=== PATIENT | female | born 1950 | race Two or more races ===

== ENCOUNTER 2022-05-29 15:00 | Inpatient (IN) | payer OTHER ==
[~2022-05-29] VITALS: Ht 152.4 cm; Wt 49.4 kg
[2022-05-29] MEDS: IV D5/0.45 NACL 1,000 ML IV SCH (01:20)
--- NOTE | 2022-05-29 15:10 | NUR ---
IV LINE ESTABLISHED ON RAC #18, BLOOD DRAWN AND SENT TO LAB
--- NOTE | 2022-05-29 15:22 | NUR ---
TECH AT BEDSIDE FOR EKG
[2022-05-29] MEDS ORDERED: IV NS 0.9% 1,000 ML BAG IV ONE ×2 (15:30→17:00)
[2022-05-29] MEDS ORDERED: TRIA1TAB3 PO (15:31)
[2022-05-29] MEDS ORDERED: CYCL10TA9 PO (15:31)
[2022-05-29] MEDS ORDERED: ROFL500T PO (15:31)
[2022-05-29] MEDS ORDERED: USTE90DI SQ (15:31)
[2022-05-29] MEDS ORDERED: ALBU18HF2 IH (15:31)
[2022-05-29] MEDS ORDERED: OSPE60TA2 PO (15:31)
[2022-05-29] MEDS ORDERED: FAMO-108 PO (15:31)
[2022-05-29] MEDS ORDERED: BENZ-38 PO (15:31)
[2022-05-29] MEDS ORDERED: SPIR25TA PO (15:31)
[2022-05-29] MEDS ORDERED: VORT10TA PO (15:31)
[2022-05-29] MEDS ORDERED: BREX4TAB PO (15:31)
[2022-05-29] MEDS ORDERED: LEMB10TA PO (15:31)
[2022-05-29] MEDS ORDERED: OXYC1TAB10 PO (15:31)
--- NOTE | 2022-05-29 15:31 | NUR ---
PT TAKEN TO RADIOLOGY VIA [facility]
[2022-05-29] MEDS ORDERED: LISI10TA29 PO (15:33)
[2022-05-29] MEDS ORDERED: FLUT1BLS6 INH (15:33)
[2022-05-29] MEDS ORDERED: ERGO500093 PO (15:33)
[2022-05-29 17:04] LABS: BASOPHILS % (AUTO) 0.3 % (0.0-2.0); EOSINOPHILS % (AUTO) 2.2 % (0.0-6.0); HEMATOCRIT 39 % (33-45); HEMOGLOBIN 12.9 g/dL (11.5-14.8); LYMPHOCYTES # (AUTO) 0.9 K/uL (0.8-4.8); LYMPHOCYTES % (AUTO) 5.9 % (20.0-44.0); MEAN CORPUSCULAR HGB CONC 33 g/dl (31.0-36.0); MEAN CORPUSCULAR VOLUME 95 fL (82-100); MONOCYTES # (AUTO) 0.6 K/uL (0.1-1.30); MONOCYTES % (AUTO) 3.8 % (2.0-12.0); NEUTROPHILS # (AUTO) 13.6 K/uL (1.8-8.9); NEUTROPHILS % (AUTO) 87.8 % (43.0-81.0); RED BLOOD CELL COUNT(AUTO) 4.11 MIL/uL (4.0-5.2); WHITE BLOOD COUNT (AUTO) 15.5 K/uL (4.3-11.0)
[2022-05-29 17:17] LABS: ALANINE AMINOTRANSFERASE 27 U/L (12-78); ALBUMIN 3.5 g/dL (3.4-5.0); ALKALINE PHOSPHATASE 70 U/L (46-116); ASPARTATE AMINOTRANSFERASE 37 U/L (15-37); BILIRUBIN,DIRECT 0.1 mg/dL (0.0-0.2); BILIRUBIN,TOTAL 0.6 mg/dL (0.2-1.0); CALCIUM, SERUM 9.4 mg/dL (8.5-10.1); CARBON DIOXIDE 19 mmol/L (21-32); CHLORIDE 96 mmol/L (98-107); GLUCOSE 165 mg/dL (74-106); POTASSIUM 4.5 mmol/L (3.5-5.1); SODIUM SERUM 133 mmol/L (136-145); TOTAL PROTEIN, SERUM 7.9 g/dL (6.4-8.2)
[2022-05-29 17:24] LABS: CREATININE 7.6 mg/dL (0.6-1.3); UREA NITROGEN, BLOOD 96 mg/dL (7-18)
--- NOTE | 2022-05-29 17:31 | NUR ---
DR MENDEZ MADE AWARE OF BUN-96 AND CREATININE OF 7.6
--- NOTE | 2022-05-29 17:35 | NUR ---
PT VERBALLY RESPONSIVE, NOT IN ACUTE DISTRESS. ABLE TO ANSWER QUESTIONS AND FOLLOW COMMANDS.
[2022-05-29 17:36] LABS: PLATELET COUNT (AUTO) 247 K/uL (150-450)
--- NOTE | 2022-05-29 18:00 | NUR ---
COVID SWAB COLLECTED AND SENT TO LAB
--- NOTE | 2022-05-29 19:43 | NUR ---
RECEIVED PT IN BED 10. PT IS ALERT AND ORIENTED, RESTING COMFORTABLY IN BED. DENIES ANY PAIN AT THIS TIME. WILL CONTINUE TO MONITOR
[2022-05-29] MEDS ORDERED: ACETAMINOPHEN 325 MG TABLET PO PRN (20:30)
[2022-05-29] MEDS ORDERED: IV NS 0.9% 1,000 ML IV SCH (20:30)
[2022-05-29] MEDS ORDERED: USTEKINUMAB 90 MG SQ SCH (20:30)
[2022-05-29] MEDS ORDERED: ALBUTEROL SULFATE 8 GM HFA.AER.AD IH PRN (20:30)
[2022-05-29] MEDS ORDERED: CYCLOBENZAPRINE 10 MG TABLET PO PRN (20:30)
[2022-05-29] MEDS ORDERED: MORPHINE SULFATE INJ 2 MG/ML DISP.SYRIN IV PRN (20:30)
[2022-05-29] MEDS ORDERED: hydrALAZINE HCL IV 20 MG VIAL IV PRN (20:30)
[2022-05-29] MEDS ORDERED: ONDANSETRON HCL/PF 4 MG/2 ML VIAL IVP PRN (20:30)
[2022-05-29] MEDS ORDERED: LEMBOREXANT 10 MG PO SCH (22:00)
[2022-05-29] MEDS ORDERED: HEPARIN SODIUM, PORCINE 5000 UNITS/1 ML VIAL ONE (22:27)
--- NOTE | 2022-05-29 22:30 | NUR ---
PT AMBULATED TO BATHROOM, STEADTY GAIT NOTED
[2022-05-29] MEDS: HEPARIN SODIUM, PORCINE 5000 UNITS/1 ML VIAL SQ SCH (22:45)
--- NOTE | 2022-05-29 22:50 | NUR ---
DR ALVAREZ AT BEDSIDE
--- NOTE | 2022-05-30 01:20 | NUR ---
IV LINE ESTABLISHED, LAC20G
--- NOTE | 2022-05-30 05:06 | NUR ---
LAB AT BEDSIDE
[2022-05-30 05:22] LABS: BASOPHILS % (AUTO) 0.3 % (0.0-2.0); EOSINOPHILS % (AUTO) 6.6 % (0.0-6.0); HEMATOCRIT 40 % (33-45); LYMPHOCYTES # (AUTO) 1.7 K/uL (0.8-4.8); LYMPHOCYTES % (AUTO) 14.7 % (20.0-44.0); MEAN CORPUSCULAR HGB CONC 33 g/dl (31.0-36.0); MEAN CORPUSCULAR VOLUME 96 fL (82-100); MONOCYTES # (AUTO) 0.6 K/uL (0.1-1.30); MONOCYTES % (AUTO) 5.4 % (2.0-12.0); NEUTROPHILS # (AUTO) 8.4 K/uL (1.8-8.9); PLATELET COUNT (AUTO) 263 K/uL (150-450); RED BLOOD CELL COUNT(AUTO) 4.16 MIL/uL (4.0-5.2); WHITE BLOOD COUNT (AUTO) 11.5 K/uL (4.3-11.0)
[2022-05-30 05:53] LABS: ALBUMIN 2.8 g/dL (3.4-5.0); BILIRUBIN,TOTAL 0.4 mg/dL (0.2-1.0); CALCIUM, SERUM 8.6 mg/dL (8.5-10.1); CREATININE 3.9 mg/dL (0.6-1.3); MAGNESIUM 2.5 mg/dL (1.8-2.4); POTASSIUM 3.6 mmol/L (3.5-5.1); TOTAL PROTEIN, SERUM 6.4 g/dL (6.4-8.2)
[2022-05-30] MEDS ORDERED: ALBUTEROL FS 2.5 MG/0.5 ML VIAL.NEB NEB PRN (07:00)
--- NOTE | 2022-05-30 07:45 | NUR ---
BED ASSIGNED IS 325-2
--- NOTE | 2022-05-30 08:14 | NUR ---
PT REPORT GIVEN TO NEREYDA BUCKNER.
--- NOTE | 2022-05-30 08:44 | NUR ---
PT TRANSFERRED TO UNIT [facility]IA [facility] ACLS PROTOCOL. WARM HANDOFF GIVEN TO NEREYDA BUCKNER.
[2022-05-30] MEDS ORDERED: Medication Not On Formulary EA (Fluticasone/Umeclidin/Vilanter (Trelegy Ellipta 100-62.5 XX SCH (09:00)
[2022-05-30] MEDS ORDERED: OSPEMIFENE 60 MG PO SCH (09:00)
[2022-05-30] MEDS ORDERED: FAMOTIDINE (20 MG) 20 MG TABLET PO SCH (09:00)
[2022-05-30] MEDS ORDERED: BREXPIPRAZOLE 4 MG PO SCH (09:00)
[2022-05-30] MEDS ORDERED: ROFLUMILAST 500 MG PO SCH (09:00)
--- NOTE | 2022-05-30 11:00 | NUR ---
PATIENT CARE TECHNICIAN INSTRUCTORMANAGER WEB NOTES PATIENT ADMITTED [facility] DUE TO WEAKNESS AND DX WITH ADELINA , ALERT AND A/O X 4 , VERBALLY RESPONSIVE , NO SOB OR DISTRESS NOTED AND NOTED WITH LAC # 20 SL AND AND RAC #18 G SL , WITH D5 1/2 NS @ 100 ML /HR ON GOING , ON TELE MONITOR WITH READING SR 91 , BODY ASSESSMENT DONE WITH NO SKIN BREAKDOWN NOTED , CONTIENT WITH BOWEL AND BLADDER AND BRP , NO C/O OF PAIN AND DISCOMFORT , MD WITH ORDER OF U/A AND COLLECTED , ALL DUE MEDS GIVEN, SAFETY PRECAUTIONS PROVIDED , BED IN LOWEST POSITION AND SR X 2 PROVIDED , WILL CONTINUE TO MONITOR
[2022-05-30] MEDS: HEPARIN SODIUM, PORCINE 5000 UNITS/1 ML VIAL SQ SCH ×2 (11:51→20:05)
[2022-05-30] MEDS: IV D5/0.45 NACL 1,000 ML IV SCH ×2 (12:18→20:00)
[2022-05-30 12:27] LABS: BILIRUBIN,URINE NEGATIVE (NEGATIVE); COLOR,URINE YELLOW (YELLOW); LEUKOCYTE ESTERASE ,URINE NEGATIVE (NEGATIVE); NITRITE, URINE NEGATIVE (NEGATIVE); PROTEIN,URINE NEGATIVE (NEGATIVE); UGLUCOSE NEGATIVE (NEGATIVE); UROBILINOGEN,URINE 0.2 EU/dL (0.2)
[2022-05-30 12:33] LABS: CREATININE, URINE 44.3 MG/DL (30.0-125.0)
[2022-05-30 12:40] LABS: RBC,URINE 0-2 /HPF (0-2); SQUAMOUS EPITHELIAL CELL,UR Few /HPF (None Seen); WBC,URINE 0-2 /HPF (0-3)
[2022-05-30 12:41] LABS: BACTERIA,URINE None seen /HPF (None Seen)
[2022-05-30] MEDS ORDERED: oxyCODONE/APAP (5/325 MG) 1 UDTAB TABLET PO PRN (18:00)
--- NOTE | 2022-05-30 18:50 | NUR ---
BUSINESS ANALYSIS CONSULTANT CLOSING NOTES PATIENT ON BED AWAKE , NO SOB OR IDSTESS NOTED, DUE MEDS GIVEN , IV HYDRATION CONTINUE AND ON SHOP TEACHER WITH READING OF SR 91 , NO C/O OF PAIN AND DISCOMFORT , SAFETY PRECAUTIONS PROVIDED AND BED IN LOWEST POSITION , SRX 2 AND ENDORSED TO NEXT SHIFT ,
--- NOTE | 2022-05-30 19:40 | NUR ---
RN OPENING NOTES; RECEIVED PT IN AAOX4.ESTHELA WELL ON RM AIR. NO SIGN SOB/DISTRESS NOTED.BREATHING EVEN UNLABORED.IV ACCESS LAC 20G.SL ANDRAC 18G INATCT AND PATENT RUNNING WITH D5 1/2 NS @100CC/HR.SAFETY MEASURED IN PLACED.CALL LIGHT WITHIN REACH.BED LOW AND LOCKED POSITION.CONTINUE TO MONITOR.
[2022-05-30 20:00] VITALS: BP 136/90
[2022-05-31 07:05] LABS: BASOPHILS % (AUTO) 0.4 % (0.0-2.0); EOSINOPHILS % (AUTO) 9.6 % (0.0-6.0); HEMATOCRIT 41 % (33-45); HEMOGLOBIN 13.7 g/dL (11.5-14.8); LYMPHOCYTES # (AUTO) 1.4 K/uL (0.8-4.8); LYMPHOCYTES % (AUTO) 15.6 % (20.0-44.0); MEAN CORPUSCULAR HGB CONC 33 g/dl (31.0-36.0); MEAN CORPUSCULAR VOLUME 94 fL (82-100); MONOCYTES # (AUTO) 0.8 K/uL (0.1-1.30); MONOCYTES % (AUTO) 8.1 % (2.0-12.0); NEUTROPHILS # (AUTO) 6.2 K/uL (1.8-8.9); NEUTROPHILS % (AUTO) 66.3 % (43.0-81.0); PLATELET COUNT (AUTO) 238 K/uL (150-450); RED BLOOD CELL COUNT(AUTO) 4.36 MIL/uL (4.0-5.2); WHITE BLOOD COUNT (AUTO) 9.3 K/uL (4.3-11.0)
[2022-05-31 07:16] LABS: CREATININE 1.4 mg/dL (0.6-1.3); MAGNESIUM 1.8 mg/dL (1.8-2.4); PHOSPHORUS 2.5 mg/dL (2.5-4.9); POTASSIUM 3.4 mmol/L (3.5-5.1)
--- NOTE | 2022-05-31 07:30 | NUR ---
RN OPENING NOTES; RECEIVED PT IN BED AWAKE , AOX4 ON ROOM , NO C/O OF PAIN AND DISCOMFORT . NO SIGN SOB/DISTRESS NOTED. BREATHING EVEN UNLABORED. IV ACCESS LAC 20G SL AND RAC 18G INTACT SL .SAFETY MEASURED IN PLACED. CALL LIGHT WITHIN REACH. BED LOW AND LOCKED IN LOWEST POSITION .CONTINUE TO MONITOR.
[2022-05-31 08:00] VITALS: BP 121/74
[2022-05-31] MEDS ORDERED: POTASSIUM CHLORIDE 20 MEQ TAB.PRT.SR PO ONE (08:00)
[2022-05-31] MEDS ORDERED: FAMOTIDINE 10 MG TABLET PO SCH (09:00)
[2022-05-31] MEDS: HEPARIN SODIUM, PORCINE 5000 UNITS/1 ML VIAL SQ SCH (09:17)
[2022-05-31] MEDS ORDERED: FAMOTIDINE (20 MG) 20 MG TABLET PO SCH (10:00)
--- NOTE | 2022-05-31 16:00 | NUR ---
MS NUCLEAR MEDICINE TECH NOTES PATIENT IS MEDICALLY STABLE AND WITH ORDER FOR DISCHARGE TODAY , PATIENT MADE AWARE AND ALL DISCHARGE FORMS WERE PREPARED , PATIENT IS GOING TO FRIENDS HOME SINCE THEY LIVE IN [place] AND WILL PROVIDE TRANSPORTATION , ALL DUE MEDS GIVEN , IV HYDRATION WAS D/C , DISCHARGE INSTRUCTIONS PROVIDED TO THE PATIENT REGARDING MEDICATIONS , FOLLOW WITH PCP , MEDS TO CONTINUE , DIET AND WHEN TO CALL 911 IN CASE OF EMERGENCY , PATIENT ABLE TO UNDERSTAND INSTRUCTIONS PROVIDED AND IV LINE WAS REMOVED , NO SKIN PROBLEM NOTED , PATIENT SIGNED THE PERSONAL BELONGINGS FORM AND D/C INSTRUCTION PAPER , PATIENT WITH NO SOB OR DISTRESS NOTED , NO C/O OF PAIN AND DISCOMFORT , LEFT THE HOSPITAL WITH THE VIA PRIVATE CAR
[2022-06-03] MEDS ORDERED: ERGOCALCIFEROL (VITAMIN D 2) 50,000 UNIT CAPSULE PO SCH (09:00)
== END 2022-05-31 15:30 | disposition home or self-care (01) | DRG 640 ==
LOC: ER 15:19 → EDBD 20:44 → TRANSITION 20:44 → TELE 05-30 08:05 → MED 05-30 22:10
PROVIDERS: ADMIT Internal Medicine; ATTEND Internal Medicine
DX: E86.0 Dehydration (principal); N17.0 Acute kidney failure with tubular necrosis; E87.1 Hypo-osmolality and hyponatremia; X30.XXXA Exposure to excessive natural heat, initial encounter; I12.9 Hypertensive chronic kidney disease with stage 1 through stage 4 chronic kidney disease, or unspecified chronic kidney disease; Y92.89 Other specified places as the place of occurrence of the external cause; N18.9 Chronic kidney disease, unspecified; Z20.822 Contact with and (suspected) exposure to COVID-19; Z79.899 Other long term (current) drug therapy; Z79.51 Long term (current) use of inhaled steroids; D72.829 Elevated white blood cell count, unspecified; E11.22 Type 2 diabetes mellitus with diabetic chronic kidney disease; E87.2 Acidosis; J44.9 Chronic obstructive pulmonary disease, unspecified; I95.9 Hypotension, unspecified
CPT/HCPCS: 36415; 70450-TC; 71045-TC; 76770-TC; 80048-TC; 80053-TC; 80076-TC; 81001; 82010-TC; 82533; 82550-TC; 82570-TC; 83605-TC; 83735-TC; 83970; 84100-TC; 84300-TC; 84443-TC; 84484-TC; 85025-TC; 87040-TC; 87081-TC; C9803; G0378; J1644; J2270; J2405; J3490; J7030